=== PATIENT | male | born 1940 | race Caucasian/White ===

== ENCOUNTER 2018-07-05 16:27 | Inpatient (IN) | payer MEDICARE, MEDICAID ==
[~2018-07-05] VITALS: Ht 182.9 cm; Wt 107.6 kg
[2018-07-05] MEDS ORDERED: methylPREDNISolone SOD SUCC 125 MG/2 ML VL IV ONE (17:30)
[2018-07-05] MEDS ORDERED: FAMOTIDINE (10MG/ML) 2ML VL IV ONE (17:30)
[2018-07-05] MEDS ORDERED: IPRATROPIUM BROM 0.5 MG/2.5ML INH SOL HHN ONE (17:30)
[2018-07-05] MEDS ORDERED: ALBUTEROL SULF 2.5 MG/0.5ML(0.5%) NEB SOLN HHN ONE (17:30)
[2018-07-05 17:38] LABS: Basophils # (auto) 0 uL; Basophils % (auto) 0.3 % (0.0-2.0); Eosinophils # (auto) 0.2 uL; Eosinophils % (auto) 2.3 % (0.0-7.0); Hematocrit 40.5 % (41.0-53.0); Lymphocytes # (auto) 1.6 uL; Lymphocytes % (auto) 16.5 % (10.0-50.0); Mean Corpuscular Hemoglobin 26.2 pg (28.0-32.0); Mean Corpuscular Hgb Conc. 32.2 g/dL (32.0-36.0); Mean Corpuscular Volume 81.3 fL (80.0-100.0); Monocytes # (auto) 0.8 uL; Monocytes % (auto) 7.7 % (0.0-12.0); Neutrophils # (auto) 7.3 uL; Neutrophils % (auto) 73.2 % (37.0-80.0); Nucleated Red Blood Cells % 0.1 %; Platelet Count (auto) 224 10^3/uL (140-450); Red Blood Cells 4.98 10^6/uL (4.5-5.90); Red Cell Distribution Width 16.9 % (11.8-14.3)
[2018-07-05 17:51] LABS: Albumin 3.5 g/dL (3.4-5.0); Calcium 8.7 mg/dL (8.5-10.1); Potassium 3.9 mmol/L (3.5-5.1)
[2018-07-05 17:53] LABS: BUN/Creatinine Ratio 17.3
[2018-07-05 17:56] LABS: Bilirubin, Total 0.8 mg/dL (0.2-1.0); Total Protein 7.6 g/dL (6.4-8.2)
[2018-07-05 18:52] LABS: Magnesium 1.9 mg/dL (1.6-2.6)
[2018-07-05] MEDS ORDERED: NITROGLYCERIN 0.4 MG SL TAB SL PRN (19:30)
[2018-07-05] MEDS ORDERED: ACETAMINOPHEN 325 MG TAB PO PRN (19:30)
[2018-07-05] MEDS ORDERED: guaiFENesin-DM 100/10mg/5ml SYR PO PRN (19:30)
[2018-07-05] MEDS ORDERED: DOCUSATE SOD 100 MG CAP PO PRN (19:30)
[2018-07-05] MEDS ORDERED: TEMAZEPAM 15 MG CAP PO PRN (19:30)
[2018-07-05] MEDS ORDERED: MORPHINE SULFATE 4 MG/ML SYR/VIAL IV PRN ×2 (19:30)
[2018-07-05] MEDS ORDERED: DEXTROSE (50%) 50ML SYRG IV PRN (19:30)
[2018-07-05] MEDS ORDERED: ONDANSETRON HCL 4 MG/2 ML VIAL IV PRN (19:30)
[2018-07-05 19:38] VITALS: BP 107/76
[2018-07-05] MEDS ORDERED: TRIAMTERENE/HCTZ 37.5/25 MG CAP/TAB PO ONE (19:45)
[2018-07-05] MEDS: FAMOTIDINE 20 MG TAB PO SCH (22:00)
[2018-07-05] MEDS: SODIUM CHLOR 0.9% PF (SALINE LOCK) 10ML VIAL/SYR IV SCH (22:00)
[2018-07-05] MEDS: CARBIDOPA W LEVODOPA 25/250mg TABLET PO SCH (22:50)
[2018-07-05] MEDS: ACCU-CHEK COMFORT CURVE STRIP VI SCH (22:50)
[2018-07-05] MEDS: InsuLIN REG 1unit/0.01ml Soln (100units/ml) SC SCH (22:50)
[2018-07-06] VITALS: BP 128/78
[2018-07-06] MEDS: methylPREDNISolone SOD SUCC 40 MG/ML VL IV SCH ×4 (00:12→17:48)
[2018-07-06] MEDS: BUDESONIDE (INHALATION) 0.5 MG/2 ML NEB NEB SCH ×3 (00:47→18:46)
[2018-07-06] MEDS: IPRATROPIUM BROM 0.5 MG/2.5ML INH SOL NEB SCH ×5 (00:47→23:36)
[2018-07-06] MEDS: ALBUTEROL SULF 2.5 MG/0.5ML(0.5%) NEB SOLN NEB SCH ×5 (00:47→23:36)
[2018-07-06] MEDS ORDERED: ASPI81CH43 PO (01:14)
[2018-07-06 01:45] LABS: Urine Bacteria NONE SEEN /hpf (None Seen); Urine Blood TRACE /uL (Negative); Urine Specific Gravity 1.017 (1.001-1.035); Urine WBC 2 /hpf (0 - 3)
[2018-07-06 04:55] VITALS: BP 106/67
[2018-07-06] MEDS: SODIUM CHLOR 0.9% PF (SALINE LOCK) 10ML VIAL/SYR IV SCH ×3 (06:05→21:49)
[2018-07-06] MEDS: CARBIDOPA W LEVODOPA 25/250mg TABLET PO SCH ×3 (06:06→21:50)
[2018-07-06] MEDS: ACCU-CHEK COMFORT CURVE STRIP VI SCH ×4 (06:06→21:50)
[2018-07-06] MEDS: InsuLIN REG 1unit/0.01ml Soln (100units/ml) SC SCH ×4 (06:28→21:54)
[2018-07-06 06:36] LABS: Basophils # (auto) 0 uL; Basophils % (auto) 0.1 % (0.0-2.0); Eosinophils # (auto) 0 uL; Lymphocytes # (auto) 0.3 uL; Monocytes # (auto) 0 uL; Neutrophils # (auto) 4.8 uL; Nucleated Red Blood Cells % 0.1 %
[2018-07-06 06:40] LABS: Hematocrit 38.5 % (41.0-53.0); Hemoglobin 12.6 g/dL (13.5-17.5); Lymphocytes % (auto) 6.6 % (10.0-50.0); Mean Corpuscular Hemoglobin 26.5 pg (28.0-32.0); Mean Corpuscular Hgb Conc. 32.9 g/dL (32.0-36.0); Mean Corpuscular Volume 80.6 fL (80.0-100.0); Monocytes % (auto) 0.9 % (0.0-12.0); Neutrophils % (auto) 92.4 % (37.0-80.0); Platelet Count (auto) 200 10^3/uL (140-450); Red Blood Cells 4.77 10^6/uL (4.5-5.90); White Blood Cell 5.1 10^3/uL (4.4-10.8)
[2018-07-06 07:16] LABS: Albumin 3.5 g/dL (3.4-5.0); BUN/Creatinine Ratio 17.7; Bilirubin, Total 0.6 mg/dL (0.2-1.0); Potassium 3.9 mmol/L (3.5-5.1); Total Protein 7.6 g/dL (6.4-8.2)
[2018-07-06 08:56] LABS: Folate (Folic Acid) 13.1 ng/mL (5.38-24)
[2018-07-06 09:00] VITALS: BP 162/109
[2018-07-06] MEDS: HCTZ 25 MG TAB PO SCH (09:43)
[2018-07-06] MEDS: FAMOTIDINE 20 MG TAB PO SCH ×2 (09:43→21:49)
[2018-07-06] MEDS: TRIAMTERENE/HCTZ 37.5/25 MG CAP/TAB PO SCH (09:44)
[2018-07-06] MEDS: DILTIAZEM HCL 180MG ER CAP PO SCH (09:45)
[2018-07-06] MEDS: ASPirin-EC 81 mg tab PO SCH (09:46)
[2018-07-06] MEDS: MULTIPLE VITAMIN TAB PO SCH (09:46)
[2018-07-06] MEDS ORDERED: cefTRIAXone 1GM/10ml IVPUSH 10 ML IV ONE (12:30)
[2018-07-06 13:00] VITALS: BP 117/57
[2018-07-06 16:59] VITALS: BP 138/86
[2018-07-06] MEDS: HYDROcodone-ACET 5/325MG TAB PO PRN (17:36)
[2018-07-06 22:00] VITALS: BP 149/66
[2018-07-07] MEDS: methylPREDNISolone SOD SUCC 40 MG/ML VL IV SCH ×5 (00:10→23:15)
[2018-07-07 05:00] VITALS: BP 140/76
[2018-07-07] MEDS: SODIUM CHLOR 0.9% PF (SALINE LOCK) 10ML VIAL/SYR IV SCH ×3 (06:16→21:32)
[2018-07-07] MEDS: ACCU-CHEK COMFORT CURVE STRIP VI SCH ×4 (06:28→21:32)
[2018-07-07] MEDS: InsuLIN REG 1unit/0.01ml Soln (100units/ml) SC SCH ×4 (06:29→21:33)
[2018-07-07 06:37] LABS: Basophils # (auto) 0 uL; Eosinophils # (auto) 0 uL; Lymphocytes # (auto) 0.4 uL; Lymphocytes % (auto) 3.8 % (10.0-50.0); Monocytes # (auto) 0.3 uL
[2018-07-07 06:39] LABS: Hematocrit 39.7 % (41.0-53.0); Hemoglobin 12.8 g/dL (13.5-17.5); Mean Corpuscular Hemoglobin 26.2 pg (28.0-32.0); Mean Corpuscular Hgb Conc. 32.3 g/dL (32.0-36.0); Mean Corpuscular Volume 81.2 fL (80.0-100.0); Monocytes % (auto) 3.2 % (0.0-12.0); Neutrophils # (auto) 9.5 uL; Platelet Count (auto) 206 10^3/uL (140-450); Red Blood Cells 4.89 10^6/uL (4.5-5.90); Red Cell Distribution Width 17.1 % (11.8-14.3); White Blood Cell 10.3 10^3/uL (4.4-10.8)
[2018-07-07 06:59] LABS: Albumin 3.4 g/dL (3.4-5.0); BUN/Creatinine Ratio 25.1; Bilirubin, Total 0.4 mg/dL (0.2-1.0); Calcium 8.9 mg/dL (8.5-10.1); Potassium 4.5 mmol/L (3.5-5.1); Total Protein 7.6 g/dL (6.4-8.2)
[2018-07-07] MEDS: IPRATROPIUM BROM 0.5 MG/2.5ML INH SOL NEB SCH ×3 (07:16→18:52)
[2018-07-07] MEDS: ALBUTEROL SULF 2.5 MG/0.5ML(0.5%) NEB SOLN NEB SCH ×3 (07:16→18:52)
[2018-07-07] MEDS: BUDESONIDE (INHALATION) 0.5 MG/2 ML NEB NEB SCH ×2 (07:16→18:52)
[2018-07-07 08:57] VITALS: BP 145/68
[2018-07-07] MEDS: cefTRIAXone 1GM/10ml IVPUSH 10 ML IV SCH (09:48)
[2018-07-07] MEDS: MULTIPLE VITAMIN TAB PO SCH (09:49)
[2018-07-07] MEDS: FAMOTIDINE 20 MG TAB PO SCH ×2 (09:49→21:31)
[2018-07-07] MEDS: ASPirin-EC 81 mg tab PO SCH (09:49)
[2018-07-07] MEDS: HCTZ 25 MG TAB PO SCH (09:50)
[2018-07-07] MEDS: TRIAMTERENE/HCTZ 37.5/25 MG CAP/TAB PO SCH (09:53)
[2018-07-07] MEDS: CARBIDOPA W LEVODOPA 25/250mg TABLET PO SCH ×2 (09:54→21:32)
[2018-07-07] MEDS: DILTIAZEM HCL 180MG ER CAP PO SCH (10:00)
[2018-07-07] MEDS ORDERED: SODIUM CHLORIDE 0.9% 1,000 ML IV ONE (12:00)
[2018-07-07 13:07] VITALS: BP 134/51
[2018-07-07] MEDS: SODIUM CHLORIDE 0.9% 1,000 ML IV SCH ×2 (13:15→21:54)
[2018-07-07] MEDS ORDERED: SODIUM CHLORIDE 0.9% 1,000 ML IV SCH (13:15)
[2018-07-07] MEDS: HYDROcodone-ACET 5/325MG TAB PO PRN (13:30)
[2018-07-07 17:07] VITALS: BP 137/63
[2018-07-07 22:00] VITALS: BP 116/87
[2018-07-08] MEDS: IPRATROPIUM BROM 0.5 MG/2.5ML INH SOL NEB SCH ×3 (00:58→11:52)
[2018-07-08] MEDS: ALBUTEROL SULF 2.5 MG/0.5ML(0.5%) NEB SOLN NEB SCH ×3 (00:58→11:52)
[2018-07-08 05:00] VITALS: BP 126/57
[2018-07-08] MEDS: ACCU-CHEK COMFORT CURVE STRIP VI SCH ×3 (05:36→17:00)
[2018-07-08] MEDS: SODIUM CHLOR 0.9% PF (SALINE LOCK) 10ML VIAL/SYR IV SCH ×2 (05:36→14:00)
[2018-07-08] MEDS: methylPREDNISolone SOD SUCC 40 MG/ML VL IV SCH ×3 (05:36→18:00)
[2018-07-08] MEDS: InsuLIN REG 1unit/0.01ml Soln (100units/ml) SC SCH ×3 (06:18→17:00)
[2018-07-08] MEDS: SODIUM CHLORIDE 0.9% 1,000 ML IV SCH ×3 (06:18→15:55)
[2018-07-08] MEDS: BUDESONIDE (INHALATION) 0.5 MG/2 ML NEB NEB SCH (06:23)
[2018-07-08 07:08] LABS: Basophils # (auto) 0 uL; Eosinophils # (auto) 0 uL; Lymphocytes # (auto) 0.3 uL; Mean Corpuscular Hemoglobin 26.6 pg (28.0-32.0); Monocytes # (auto) 0.2 uL
[2018-07-08 07:10] LABS: Hematocrit 38.6 % (41.0-53.0); Hemoglobin 12.6 g/dL (13.5-17.5); Lymphocytes % (auto) 3.3 % (10.0-50.0); Mean Corpuscular Hgb Conc. 32.5 g/dL (32.0-36.0); Mean Corpuscular Volume 81.8 fL (80.0-100.0); Monocytes % (auto) 2.4 % (0.0-12.0); Neutrophils # (auto) 9.2 uL; Neutrophils % (auto) 94.3 % (37.0-80.0); Platelet Count (auto) 190 10^3/uL (140-450); Red Blood Cells 4.72 10^6/uL (4.5-5.90); Red Cell Distribution Width 17.3 % (11.8-14.3); White Blood Cell 9.7 10^3/uL (4.4-10.8)
[2018-07-08 07:18] LABS: Albumin 3.2 g/dL (3.4-5.0); BUN/Creatinine Ratio 32.4; Bilirubin, Total 0.6 mg/dL (0.2-1.0); Calcium 8.4 mg/dL (8.5-10.1); Potassium 4.3 mmol/L (3.5-5.1); Total Protein 7.1 g/dL (6.4-8.2)
[2018-07-08 08:59] VITALS: BP 133/62
[2018-07-08] MEDS: cefTRIAXone 1GM/10ml IVPUSH 10 ML IV SCH (09:51)
[2018-07-08] MEDS: FAMOTIDINE 20 MG TAB PO SCH (09:52)
[2018-07-08] MEDS: MULTIPLE VITAMIN TAB PO SCH (09:56)
[2018-07-08] MEDS: CARBIDOPA W LEVODOPA 25/250mg TABLET PO SCH (09:57)
[2018-07-08] MEDS: HCTZ 25 MG TAB PO SCH (09:57)
[2018-07-08] MEDS: ASPirin-EC 81 mg tab PO SCH (09:57)
[2018-07-08] MEDS: DILTIAZEM HCL 180MG ER CAP PO SCH (10:00)
[2018-07-08] MEDS: TRIAMTERENE/HCTZ 37.5/25 MG CAP/TAB PO SCH (10:00)
[2018-07-08 11:54] VITALS: BP 142/66
[2018-07-08 13:00] VITALS: BP 142/66
[2018-07-08 17:19] VITALS: BP 135/70
== END 2018-07-08 19:34 | disposition home or self-care (01) | DRG 190 ==
LOC: ER 16:27 → TELE 16:28 → TELE-WESTW 23:37
PROVIDERS: ADMIT Internal Medicine; ATTEND Family Medicine
DX: J44.0 Chronic obstructive pulmonary disease with (acute) lower respiratory infection (principal); J18.9 Pneumonia, unspecified organism; J45.901 Unspecified asthma with (acute) exacerbation; I13.0 Hypertensive heart and chronic kidney disease with heart failure and stage 1 through stage 4 chronic kidney disease, or unspecified chronic kidney disease; J98.11 Atelectasis; I50.42 Chronic combined systolic (congestive) and diastolic (congestive) heart failure; J44.1 Chronic obstructive pulmonary disease with (acute) exacerbation; E11.21 Type 2 diabetes mellitus with diabetic nephropathy; G20 Parkinson's disease; E11.22 Type 2 diabetes mellitus with diabetic chronic kidney disease; J20.9 Acute bronchitis, unspecified; R06.03 Acute respiratory distress; E66.9 Obesity, unspecified; F03.90 Unspecified dementia, unspecified severity, without behavioral disturbance, psychotic disturbance, mood disturbance, and anxiety; E86.0 Dehydration; E78.5 Hyperlipidemia, unspecified; D63.8 Anemia in other chronic diseases classified elsewhere; M54.9 Dorsalgia, unspecified; I67.2 Cerebral atherosclerosis; G89.29 Other chronic pain; N18.3 Chronic kidney disease, stage 3 (moderate); Z79.899 Other long term (current) drug therapy; Z83.3 Family history of diabetes mellitus; Z68.32 Body mass index [BMI] 32.0-32.9, adult; Z87.440 Personal history of urinary (tract) infections
CPT/HCPCS: 36415; 70450; 71045; 80053; 81001; 82607; 82746; 82962; 83036; 83735; 83880; 84443; 84484; 85025; 87086; 93005; 93306; 94640; 94761; 96374; 96375; J0696; J1815; J3490

== ENCOUNTER 2018-11-25 10:27 | Emergency (ER) | payer MEDICAID, MEDICARE, OTHER ==
[~2018-11-25] VITALS: Ht 182.9 cm; Wt 117.0 kg
[~2018-11-25 10:27] MED LIST: ASPI81CH43 PO
[2018-11-25 12:26] LABS: Basophils # (auto) 0 uL; Basophils % (auto) 0.2 % (0.0-2.0); Eosinophils # (auto) 0.2 uL; Eosinophils % (auto) 2.3 % (0.0-7.0); Hemoglobin 13.2 g/dL (13.5-17.5); Lymphocytes # (auto) 1.3 uL; Monocytes # (auto) 0.7 uL; Neutrophils # (auto) 5.7 uL; White Blood Cell 7.9 10^3/uL (4.4-10.8)
[2018-11-25 12:30] LABS: Hematocrit 41.4 % (41.0-53.0); Lymphocytes % (auto) 16.4 % (10.0-50.0); Mean Corpuscular Hemoglobin 25.9 pg (28.0-32.0); Mean Corpuscular Volume 81.1 fL (80.0-100.0); Neutrophils % (auto) 72.1 % (37.0-80.0); Platelet Count (auto) 216 10^3/uL (140-450)
[2018-11-25 12:56] LABS: Albumin 3.3 g/dL (3.4-5.0); BUN/Creatinine Ratio 13.5; Calcium 8.8 mg/dL (8.5-10.1)
[2018-11-25 12:58] LABS: Bilirubin, Total 0.9 mg/dL (0.2-1.0); Total Protein 7.6 g/dL (6.4-8.2)
[2018-11-25] MEDS ORDERED: INDOMETHACIN 25 MG CAP PO ONE (16:30)
[2018-11-25 17:05] VITALS: BP 129/76
== END 2018-11-25 19:18 | disposition home or self-care (01) ==
LOC: EDBD 10:27 → ER 10:27
DX: M10.9 Gout, unspecified (principal); J44.9 Chronic obstructive pulmonary disease, unspecified; E11.9 Type 2 diabetes mellitus without complications; I10 Essential (primary) hypertension; Z79.82 Long term (current) use of aspirin
CPT/HCPCS: 36415; 80053; 84550; 85025